=== PATIENT | female | born 1965 | race Caucasian/White ===

== ENCOUNTER 2017-01-30 12:32 | Emergency (ER) | payer OTHER, MEDICAID ==
[2017-01-30 12:40] VITALS: BP 120/81; PULSE 64; RESP 18; TEMP 98.2; O2SAT 97
--- NOTE | 2017-01-30 13:04 | EDPHY ---
H & P Time Seen by Provider: 01/30/17 13:04 HPI/ROS: HPI: ROS: Smoking Status: Never smoked Constitutional: Initial Vital Signs Temperature (C) 36.8 C 01/30/17 12:38 Heart Rate 64 01/30/17 12:38 Respiratory Rate 18 01/30/17 12:38 Blood Pressure 120/81 H 01/30/17 12:38 O2 Sat (%) 97 01/30/17 12:38 O2 Delivery Mode Room Air Allergies/Adverse Reactions: silver sulfadiazine [From Silvadene] Allergy (Severe, Verified 01/30/17 12:37) Skin Reaction midazolam HCl [From Versed] Allergy (Intermediate, Verified 01/30/17 12:37) Other-Enter Comments haloperidol [Haloperidol] Allergy (Unknown, Verified 01/30/17 12:37) "GOES PSYCHO" midazolam [Midazolam] Allergy (Unknown, Verified 01/30/17 12:37) "GOES PSYCHO" Penicillins Allergy (Unknown, Verified 01/30/17 12:37) SEVERE HIVES promethazine [Promethazine] Allergy (Unknown, Verified 01/30/17 12:37) "GOES PSYCHO" Sulfa (Sulfonamide Antibiotics) Allergy (Unknown, Verified 01/30/17 12:37) SKIN REACTION TO SILVADINE Home Medications: Medication Instructions Recorded Diazepam [Valium] 10 mg PO BID 12/15/15 morphINE IR [morphINE IR 30 mg 30 mg PO TID 12/15/15 (RX)] Diazepam [Valium] 10 mg PO BID #7 tab 02/20/16 Diazepam [Valium] 10 mg PO DAILY #9 tab 02/20/16 Morphine Sulfate [Morphine Sulfate 60 mg PO TID #9 tablet.er 02/20/16 ER] morphINE IR [morphINE IR 30 mg 30 mg PO TID #9 tab 02/20/16 (RX)] Cyclobenzaprine 01/30/17 Departure - Departure Referrals: Thang Keller [Primary Care Provider] - As per Instructions
--- NOTE | 2017-01-30 13:44 | EDPHY ---
H & P Stated Complaint: wound on left foot Time Seen by Provider: 01/30/17 13:40 HPI/ROS: CHIEF COMPLAINT: Erythema left 3rd toe HISTORY OF PRESENT ILLNESS: The patient presents to the ED for evaluation of erythema to her left 3rd toe. The patient was seen at urgent care clinic in [place] and started on doxycycline yesterday. She presents to the ED today out of concerns that she needs debridement of her toe. The patient does have a history of paraplegia from a prior accident. The patient has had problems with acute I also result past. The patient denies fever. She denies additional acute complaints. REVIEW OF SYSTEMS: A comprehensive 10 point review of systems is otherwise negative aside from elements mentioned in the history of present illness. Source: Patient Exam Limitations: No limitations - Personal History LMP (Females 10-55): 1-7 Days Ago Current Tetanus/Diphtheria Vaccine: Yes Current Tetanus Diphtheria and Acellular Pertussis (TDAP): Yes - Medical/Surgical History Hx Asthma: No Hx Chronic Respiratory Disease: No Hx Diabetes: No Hx Cardiac Disease: No Hx Renal Disease: No Hx Cirrhosis: No Hx Alcoholism: No Hx HIV/AIDS: No Hx Splenectomy or Spleen Trauma: No Other PMH: BACK SURGERY/PARAPLEGIA/CHRONIC PAIN - Social History Smoking Status: Never smoked - Physical Exam Exam: General Appearance: Alert, no distress Skin: Mild erythema noted on the left 3rd toe, no fluctuance, no discharge, no lymphangitis Musculoskeletal: No pain out of proportion with passive or active range of motion noted in the left foot Constitutional: Initial Vital Signs Temperature (C) 36.8 C 01/30/17 12:38 Heart Rate 64 01/30/17 12:38 Respiratory Rate 18 01/30/17 12:38 Blood Pressure 120/81 H 01/30/17 12:38 O2 Sat (%) 97 01/30/17 12:38 O2 Delivery Mode Room Air Allergies/Adverse Reactions: silver sulfadiazine [From Silvadene] Allergy (Severe, Verified 01/30/17 12:37) Skin Reaction midazolam HCl [From Versed] Allergy (Intermediate, Verified 01/30/17 12:37) Other-Enter Comments haloperidol [Haloperidol] Allergy (Unknown, Verified 01/30/17 12:37) "GOES PSYCHO" midazolam [Midazolam] Allergy (Unknown, Verified 01/30/17 12:37) "GOES PSYCHO" Penicillins Allergy (Unknown, Verified 01/30/17 12:37) SEVERE HIVES promethazine [Promethazine] Allergy (Unknown, Verified 01/30/17 12:37) "GOES PSYCHO" Sulfa (Sulfonamide Antibiotics) Allergy (Unknown, Verified 01/30/17 12:37) SKIN REACTION TO SILVADINE Home Medications: Medication Instructions Recorded Diazepam [Valium] 10 mg PO BID 12/15/15 morphINE IR [morphINE IR 30 mg 30 mg PO TID 12/15/15 (RX)] Diazepam [Valium] 10 mg PO BID #7 tab 02/20/16 Diazepam [Valium] 10 mg PO DAILY #9 tab 02/20/16 Morphine Sulfate [Morphine Sulfate 60 mg PO TID #9 tablet.er 02/20/16 ER] morphINE IR [morphINE IR 30 mg 30 mg PO TID #9 tab 02/20/16 (RX)] Cyclobenzaprine 01/30/17 Medical Decision Making ED Course/Re-evaluation: The patient has a simple cellulitis of her toe. There is no evidence of fluctuance or drainage. The patient was just started on doxycycline yesterday which should offer her adequate coverage for MRSA. The patient does have a follow-up appointment tomorrow at [facility] Care Clinic. The patient was quite upset about the fact that we did not have all of supplies typically stock by the wound care clinic. Departure - Departure Disposition: Home, Routine, Self-Care Clinical Impression: Cellulitis of toe of left foot Condition: Good Instructions: Cellulitis (ED) Additional Instructions: 1. Please take antibiotics as directed. I spoke Dr. Wakefield who feels that doxycycline is an appropriate antibiotic for you to try for treatment of your infection. 2. Please return to the ED for markedly worsening redness or pain. 3. Please follow up with Dr. Ari Wakefield as needed. Please follow up with her own care as needed. Referrals: Thang Keller [Primary Care Provider] - As per Instructions Ari Wakefield MD [Medical Doctor] - As per Instructions
== END 2017-01-30 13:57 | disposition home or self-care (01) ==
DX: L03.032 Cellulitis of left toe (principal)

== ENCOUNTER 2017-02-22 16:44 | Inpatient (IN) | payer OTHER, MEDICAID ==
[2017-02-22] MEDS ORDERED: VANCOMYCIN HCL/NORMAL SALINE 250 ML IV ONE (17:17)
[2017-02-22] MEDS ORDERED: ERTAPENEM 1 GM in NS 100 ML IV ONE (17:17)
--- NOTE | 2017-02-22 17:27 | EDPHY ---
H & P Stated Complaint: left second toe infection Time Seen by Provider: 02/22/17 17:01 HPI/ROS: Complaint: Left 2nd toe cellulitis History of present illness: This is a 51-year-old female who is a paraplegic who presents to the emergency department for left 2nd toe cellulitis. Patient has been struggling for the last month with cellulitis to this toe. She was initially treated with doxycycline without improvement. She was switched to clindamycin which she is currently on but not tolerating well. She is followed by Dr. Ari Wakefield of infectious disease. She presents today feeling it is worse. She denies other associated signs or symptoms including no fevers, no rigors no red streaking up the leg. Review of systems: A 10 point review of systems was obtained and other than described above was negative - Personal History LMP (Females 10-55): Over 28 Days Ago Current Tetanus/Diphtheria Vaccine: Yes Current Tetanus Diphtheria and Acellular Pertussis (TDAP): Yes - Medical/Surgical History Hx Asthma: No Hx Chronic Respiratory Disease: No Hx Diabetes: No Hx Cardiac Disease: No Hx Renal Disease: No Hx Cirrhosis: No Hx Alcoholism: No Hx HIV/AIDS: No Hx Splenectomy or Spleen Trauma: No Other PMH: BACK SURGERY/PARAPLEGIA/CHRONIC PAIN, PE - Social History Smoking Status: Never smoked - Physical Exam Exam: General Appearance: Alert, nontoxic. Eyes: Pupils equal and round no injection. Respiratory: Chest is non tender, lungs are clear to auscultation. Cardiac: regular rate and rhythm Gastrointestinal: Abdomen is soft and non tender, no masses, bowel sounds normal. Musculoskeletal: Neck is supple and non tender. Extremities have full range of motion and are non tender. Skin: Erythema to the left 2nd toe. There is an also over the top of the toe. Mild erythema over the dorsum of the foot. Constitutional: Initial Vital Signs Temperature (C) 37.0 C 02/22/17 17:18 Heart Rate 105 H 02/22/17 17:18 Respiratory Rate 18 02/22/17 17:18 Blood Pressure 121/95 H 02/22/17 17:18 O2 Sat (%) 92 02/22/17 17:18 O2 Delivery Mode Room Air Allergies/Adverse Reactions: silver sulfadiazine [From Silvadene] Allergy (Severe, Verified 02/22/17 17:17) Skin Reaction midazolam HCl [From Versed] Allergy (Intermediate, Verified 02/22/17 17:17) Other-Enter Comments haloperidol [Haloperidol] Allergy (Unknown, Verified 02/22/17 17:17) "GOES PSYCHO" midazolam [Midazolam] Allergy (Unknown, Verified 02/22/17 17:17) "GOES PSYCHO" Penicillins Allergy (Unknown, Verified 02/22/17 17:17) SEVERE HIVES promethazine [Promethazine] Allergy (Unknown, Verified 02/22/17 17:17) "GOES PSYCHO" Sulfa (Sulfonamide Antibiotics) Allergy (Unknown, Verified 02/22/17 17:17) SKIN REACTION TO SILVADINE Home Medications: Medication Instructions Recorded Diazepam [Valium] 10 mg PO BID 12/15/15 morphINE IR [morphINE IR 30 mg 30 mg PO TID 12/15/15 (RX)] Diazepam [Valium] 10 mg PO BID #7 tab 02/20/16 Diazepam [Valium] 10 mg PO DAILY #9 tab 02/20/16 Morphine Sulfate [Morphine Sulfate 60 mg PO TID #9 tablet.er 02/20/16 ER] morphINE IR [morphINE IR 30 mg 30 mg PO TID #9 tab 02/20/16 (RX)] Cyclobenzaprine 03 Medical Decision Making ED Course/Re-evaluation: Patient seen under the supervision of my secondary supervising physician Dr. Gonsalo Neves. Patient presents to the emergency department for evaluation of persistent left 2nd toe cellulitis. She is followed by Dr. Ari Wakefield. He has seen her in the emergency department. He requests that patient be admitted to the hospital. Patient admitted to Dr. Loren Fitzgerald. Dr. Wakefield will follow along. He is recommending Invanz and vancomycin with the vancomycin dosed q.12 hours. Plan has been discussed with the patient who voiced understanding and agreement with it. Departure - Departure Disposition: [facility] Inpatient Acute Clinical Impression: Cellulitis Qualifiers: Site of cellulitis: extremity Site of cellulitis of extremity: toe Laterality: left Qualified Code(s): L03.032 - Cellulitis of left toe Condition: Good
[2017-02-22 17:50] LABS: % IMMATURE GRANULYOCYTES 0.4 % (0.0-1.1); ABSOLUTE IMMATURE GRANULOCYTES 0.03 10^3/uL (0.00-0.10); ADD DIFF? NO; ADD MORPH? NO; ADD SCAN? NO; ATYPICAL LYMPHOCYTE FLAG 0 (0-99); FRAGMENT RBC FLAG 0 (0-99); HEMATOCRIT 41.7 % (38.0-47.0); HEMOGLOBIN 13.7 g/dL (12.6-16.3); LEFT SHIFT FLG 0 (0-99); LIPEMIA HEMOLYSIS FLAG 80 (0-99); MEAN CELL HEMOGLOBIN 29.8 pg (27.9-34.1); MEAN CELL HEMOGLOBIN CONCENTR. 32.9 g/dL (32.4-36.7); MEAN CELL VOLUME 90.8 fL (81.5-99.8); PLATELET CLUMPS FLAG 0 (0-99); PLATELET COUNT 358 10^3/uL (150-400); RED BLOOD CELL COUNT 4.59 10^6/uL (4.18-5.33); RED CELL DISTRIBUTION WIDTH 13.1 % (11.5-15.2)
[2017-02-22 18:01] LABS: ANION GAP 7 mEq/L (8-16); CALCIUM 8.9 mg/dL (8.5-10.4); CARBON DIOXIDE 28 mEq/l (22-31); CHLORIDE 100 mEq/L (97-110); CREATININE 0.5 mg/dL (0.6-1.0); GLOMERULAR FILTRATION RATE > 60; GLUCOSE 84 mg/dL (70-100); POTASSIUM 3.2 mEq/L (3.5-5.2); SODIUM 135 mEq/L (134-144)
[2017-02-22] MEDS ORDERED: morphINE IR 30 MG TAB PO PRN (19:03)
[2017-02-22] MEDS ORDERED: CYCLOBENZAPRINE 10 MG TAB PO PRN (19:03)
[2017-02-22] MEDS ORDERED: PROTOCOL POTASSIUM 1 DOSE MISC PRN (19:05)
--- NOTE | 2017-02-22 19:07 | GCON ---
[f rep st] CONSULTATION INPATIENT INFECTIOUS DISEASE CONSULTATION REFERRING PHYSICIAN: KALYANI Cantu HISTORY OF PRESENT ILLNESS: Patient is a 51-year-old female, who has paraplegia from a spinal cord transection many years ago, who noted an injury to the second toe of her left foot on the dorsal asp ect a number of weeks ago. Patient had sought care around her home in [place] in the emergency room, i n urgent care there, and in [place] where she was first provided with oral doxycycline, which did not take care of the problem. Next, she was given oral clindamycin, which she has a very difficult sonal e tolerating from a gastrointestinal standpoint. She had been unable to keep anything down over the last couple of days, and noticed that her 2nd digit on her left foot became much more red, and that the redness was beginning to come up on her dorsum of her foot. She also felt generally poorly and febrile. She is here for evaluation and treatment. PAST MEDICAL HISTORY: 1. Paraplegia. 2. Chronic pain. PAST SURGICAL HISTORY: Status post back surgery. ANTIBIOTICS: Clindamycin. ALLERGIES: Patient has allergies to sulfadiazine, midazolam, haloperidol, penicillins, sulfa. SOCIAL HISTORY: Patient typically lives in the [facility] area. She denies any significant tobacc o use. Occasional alcohol use. The patient has some history of narcotic addiction, although this w as a pill addiction from prescribed narcotics. FAMILY HISTORY: Reviewed, but noncontributory. REVIEW OF SYSTEMS: Other than that detailed above in History of Present Illness, a 10-system review is negative. PHYSICAL EXAMINATION: VITAL SIGNS: Temperature is 37.0, heart rate is 105, respiratory rate is 18, blood pressure is 121/95. GENERAL: The patient is a well-formed, thin, paraplegic female in no ac tazlina distress. She is not toxic in appearance. She is alert and oriented x3. She is pleasant in de meanor. HEENT: Normocephalic for age. Atraumatic. No scleral icterus. No oral lesion. No drain age from the nares. Eyes: Lids and conjunctivae within normal limits. Pupils equal, round bilater ally. NECK: Supple. No meningismus. LUNGS: Clear to auscultation bilaterally, with good effort. HEART: Regular rate and rhythm. No murmur, rub or gallop noted. SKIN: Warm and dry to the touc h. Patient has an enlarged and inflamed red left 2nd digit, with a 1-cm in diameter ulceration on t he dorsal aspect. The depth of the ulceration does not get to bone. There is no malodor. There is serosanguineous drainage. MUSCULOSKELETAL: No muscle or bony tenderness is noted. No joint line effusion or arthritis seen. NEUROLOGIC: Cranial nerves 2-12 seem to be intact. Peripheral sensati on in the upper extremities is intact, absent in the lower. LABORATORY DATA: The patient had a CBC dated 02/22/2017, which is all within normal limits. White cell count is 7.2, differentials within normal limits. Serum chemistries on 02/22/2017 show a sodiu m of 135, potassium 3.2, chloride of 100, bicarbonate of 28, BUN of 6, creatinine of 0.5. Microbiologic data on 02/22/2017: Blood cultures, 2 sets, are pending. ASSESSMENT: Left 2nd toe infected ulcer/cellulitis. Cellulitis appears to be starting to progress onto the dorsum of the foot. Given the patient's allergy list and failed course of doxycycline and clindamycin, suspect she will need intravenous antibiotic coverage on this. We will admit, and star t her on vancomycin and ertapenem, and re-evaluate every day to see if she can be switched to an ora l Keflex, and followed as an outpatient. PLAN: 1. Start on vancomycin 1 g IV q.12 hours, and ertapenem 1 g IV q.24 hours. 2. Follow appearance of cellulitis over the toe and dorsum of foot. /[id number]/MODL
[2017-02-22] MEDS ORDERED: VANCOMYCIN HCL/NORMAL SALINE 250 ML IV SCH (20:00)
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
[2017-02-22 20:38] LABS: POTASSIUM 3.6 mEq/L (3.5-5.2)
[2017-02-22] MEDS ORDERED: POTASSIUM CL 10 MEQ TAB PO ONE (21:46)
[2017-02-22] MEDS: DIAZEPAM 10 MG TAB PO PRN (21:58)
[2017-02-22] MEDS: fentaNYL 100 MCG PATCH TD SCH (21:58)
[2017-02-22] MEDS: morphINE SR 30 MG TAB PO SCH (21:59)
[2017-02-23 04:53] LABS: % IMMATURE GRANULYOCYTES 0.4 % (0.0-1.1); ABSOLUTE IMMATURE GRANULOCYTES 0.02 10^3/uL (0.00-0.10); ADD DIFF? NO; ADD MORPH? NO; ADD SCAN? NO; ATYPICAL LYMPHOCYTE FLAG 10 (0-99); FRAGMENT RBC FLAG 0 (0-99); HEMATOCRIT 37.8 % (38.0-47.0); HEMOGLOBIN 12.2 g/dL (12.6-16.3); LEFT SHIFT FLG 0 (0-99); LIPEMIA HEMOLYSIS FLAG 80 (0-99); MEAN CELL HEMOGLOBIN CONCENTR. 32.3 g/dL (32.4-36.7); MEAN CELL VOLUME 92.9 fL (81.5-99.8); MEAN PLATELET VOLUME 9.2 fL (8.7-11.7); PLATELET CLUMPS FLAG 0 (0-99); PLATELET COUNT 318 10^3/uL (150-400); RED BLOOD CELL COUNT 4.07 10^6/uL (4.18-5.33); RED CELL DISTRIBUTION WIDTH 13.2 % (11.5-15.2)
[2017-02-23] MEDS ORDERED: ACETAMINOPHEN 325 MG TAB PO PRN (05:08)
[2017-02-23 05:09] LABS: ALANINE AMINOTRANSFERASE 28 IU/L (9-52); ALBUMIN 2.9 g/dL (3.5-5.0); ALKALINE PHOSPHATASE 95 IU/L (38-126); ANION GAP 7 mEq/L (8-16); ASPARTATE AMINOTRANSFERASE 16 IU/L (14-46); BILIRUBIN,TOTAL 0.5 mg/dL (0.1-1.4); BILIRUBIN-CONJUGATED 0.4 mg/dL (0.0-0.5); BILIRUBIN-UNCONJUGATED 0.1 mg/dL (0.0-1.1); CALCIUM 8.5 mg/dL (8.5-10.4); CARBON DIOXIDE 27 mEq/l (22-31); CHLORIDE 105 mEq/L (97-110); CREATININE 0.5 mg/dL (0.6-1.0); GLOMERULAR FILTRATION RATE > 60; GLUCOSE 107 mg/dL (70-100); MAGNESIUM 1.9 mg/dL (1.6-2.3); POTASSIUM 4.1 mEq/L (3.5-5.2); SODIUM 139 mEq/L (134-144); TOTAL PROTEIN 5.3 g/dL (6.3-8.2)
[2017-02-23] MEDS: ACETAMINOPHEN 325 MG TAB PO PRN (05:52)
[2017-02-23] MEDS ORDERED: VANCOMYCIN HCL/NORMAL SALINE 250 ML IV SCH (08:00)
[2017-02-23] MEDS: morphINE SR 30 MG TAB PO SCH ×2 (08:09→21:22)
[2017-02-23] MEDS: ENOXAPARIN 40 MG/0.4 ML SYR SC SCH (08:09)
[2017-02-23] MEDS: ERTAPENEM 1 GM in NS 100 ML IV SCH (09:24)
--- NOTE | 2017-02-23 10:19 | HOSPPROG ---
Hospitalist Progress Note Assessment/Plan: New patient to me today DIAGNOSES: -Toe Wound with Infection, suspect Staph but polymicrobial possible -Sepsis -Diarrhea after recent po Doxy and Clinda; remote hx of C Diff 2010 -Chronic paraplegia -Prior history of difficult pressure ulcers in the ankle and sacral areas are now closed after skin grafting PLANS: - follow cultures closely here -Continue current Vanco on e-rtapenem -Elevation of foot -Wound care nurse consult -Check stool for C diff and manage appropriately SUBJECTIVE: No pain at her foot No chills or sweats She is having significant abdominal cramping and had a diarrheal stool this morning. She did have C difficile colitis in 2010 and says that her symptoms now are quite reminiscent of the symptoms she had then. OBJECTIVE Vitals reviewed: Stable without fever Exam: alert oriented skin warm dry color ok resps not labored lungs clear BSs heart regular abd soft nondistended nontender, bowel sounds present limbs her toe she says looks better than last night but on my examination it is still erythematous and edematous. The open wound on the dorsum of the toe over the IP joint has if any minimal drainage at this time, there is minimal edema over the distal dorsal aspect of the foot ; otherwise limbs are warm, no edema iv site ok Laboratory data: slight anemia has developed otherwise stable since yesterday Cultures of wound blood all pending at this time Objective: Vital Signs Temp Pulse Resp BP Pulse Ox 36.4 C 93 16 112/82 H 97 02/23/17 07:58 02/23/17 07:58 02/23/17 07:58 02/23/17 07:58 02/23/17 07:58 Microbiology 02/22/17 22:10 Gram Stain - Final Toe - Skin Laboratory Results 02/23/17 04:28 02/23/17 04:28 02/22/17 02/23/17 02/24/17 06:59 06:59 06:59 Intake Total 680 Balance 680 ICD10 Worksheet Patient Problems: Problems Problem Status Onset Cellulitis Acute Chronic pain syndrome Acute Paraplegia Acute Urinary tract infection Acute Vomiting Acute
--- NOTE | 2017-02-23 11:36 | PCMIDPN ---
Assessment/Plan: Assessment: Left 4th toe chronic ulceration with surrounding cellulitis. Coverage with vancomycin and ertapenem have decreased the erythema over the toe and the distal aspect of the foot over the MTP. Suspect that the patient may be able to switch to oral antibiotics for discharge in 24 hours. Meantime we will continue the vancomycin ertapenem empirically. Plan: 1. Continue intravenous vancomycin ertapenem. Adjust vancomycin dose to 750 mg IV q.12 hours. 2. Monitor appearance of the 4th digit cellulitis. 3. Plan for discharge on oral antibiotic-likely Keflex due to reported penicillin allergy-tomorrow in order for the patient to make a mid afternoon wound appointment at 3. 02/23/17 16:39 Subjective: Patient is resting comfortably in her hospital room. She denies any new complaint. She states that her left 4th toe appears better to her. She has a long-term spinal cord injury and is paraplegic. Objective: Vancomycin # 1 Ertapenem # 2 Vital Signs Temp Pulse Resp BP Pulse Ox 36.4 C 93 16 112/82 H 97 02/23/17 07:58 02/23/17 07:58 02/23/17 07:58 02/23/17 07:58 02/23/17 07:58 Microbiology 02/22/17 22:10 Gram Stain - Final Toe - Skin Laboratory Results 02/23/17 04:28 02/23/17 04:28 02/22/17 02/23/17 02/24/17 05:59 05:59 05:59 Intake Total 680 Balance 680 - Physical Exam General Appearance: WD/WN, alert, no apparent distress, thin, non-toxic Respiratory: lungs clear, normal breath sounds, No respiratory distress Cardiac/Chest: regular rate, rhythm, No tachycardia Extremities: non-tender, No normal inspection (Left 4th toe with significant edema and moderate erythema improved over examination yesterday. Erythema on the distal part of the forefoot. Improved from yesterday.) Skin: normal color, warm/dry, No rash Neuro/Psych: alert, normal mood/affect, oriented x 3 ICD10 Worksheet Patient Problems: Problems Problem Status Onset Cellulitis Acute Chronic pain syndrome Acute Paraplegia Acute Urinary tract infection Acute Vomiting Acute
--- NOTE | 2017-02-23 11:44 | WOCRNPDOC ---
DAYANNA Advanced Assessment Note - Skin Integrity Problem, Advanced Assess Left Second Toe Dressing Type: Allevyn Life Dressing Description: Clean/Dry, Intact Exudate Amount: Scant Exudate Color: Reddish/Yellow Exudate Characteristic(s): Serosanguinous Integumentary Issue Intervention: Dressing Removed, Mechanical Debridement ( using gauze/NS) Janeth Wound Tissue: Erythema, Swollen, Erythema Marked by Wound RN Janeth Wound Swelling: Moderate Wound Bed Color: Red, Yellow Wound Bed Constitution: Smooth Tissue (70%), Adhered Slough (30%) Wound Edges: Not Attached Site Odor: None Site Measurement - Head-to-Toe Length X Width X Depth (cm): [id number] Skin Integrity Problem Comment: Slough-filled wound noted on dorsal aspect of L second toe. Used dry gauze to mechanically debride wound, and removed significant amount of slough. There remain two areas in the wound bed where slough is well-adhered. Remaining tissue is red, non-granulating. There is erythema extending out from wound bed up to the proximal aspect of this digit, which I marked during assessment. According to report from ID, this is improved from yesterday (02/22) when it extended up onto the dorsum of the L foot. Order for anti-microbial dressings (Verónica Ag and Hydrofera Blue Ready) to be placed. Patient will f[facility]u w[facility] in [facility] setting. Right Heel Dressing Type: Open to Air Exudate Amount: None Exudate Characteristic(s): None Integumentary Issue Intervention: Dressing Applied Janeth Wound Tissue: Blanching, Intact Janeth Wound Swelling: None Wound Bed Color: Purple, Red Site Measurement - Head-to-Toe Length X Width X Depth (cm): Proximal: [id number]. Distal: 0.4cmx0.8tht1ga Pressure Injury Present on Admit: Yes Skin Integrity Problem Comment: Two, discrete, resolving pressure injuries noted on patient's R heel, which she reports occurred in the ED up in [facility] because she was placed of her side for too long. Presently, both sites have intact skin and jennifer when palpated. Janeth-wound tissue is intact w/ no associated erythema or swelling. Placed an Allevyn Life dressing for protection only and ordered Accu-max pump to be applied to her bed as a precaution.
[2017-02-23 17:59] LABS: POTASSIUM 4.1 mEq/L (3.5-5.2)
[2017-02-23] MEDS: VANCOMYCIN 750 MG in D5W 150 ML IV SCH (21:21)
[2017-02-23] MEDS: DIAZEPAM 10 MG TAB PO PRN (21:22)
[2017-02-24 05:32] LABS: POTASSIUM 4.2 mEq/L (3.5-5.2)
[2017-02-24 07:59] VITALS: BP 98/64; PULSE 86; RESP 18; TEMP 98.1; O2SAT 100
[2017-02-24] MEDS: ERTAPENEM 1 GM in NS 100 ML IV SCH (08:45)
[2017-02-24] MEDS: morphINE SR 30 MG TAB PO SCH (08:45)
[2017-02-24] MEDS: ACETAMINOPHEN 325 MG TAB PO PRN (08:46)
[2017-02-24] MEDS: ENOXAPARIN 40 MG/0.4 ML SYR SC SCH (08:46)
--- NOTE | 2017-02-24 09:34 | PCMIDPN ---
Assessment/Plan: Assessment: Left 4th toe chronic ulceration with surrounding cellulitis. Erythema moderately improved. Will record changer tester to PO keflex 500 mg QID for another 10 days. Follow up in wound clinic to day and [facility] Plan: 1. Discontinue intravenous vancomycin and ertapenem. 2. Plan for discharge on oral antibiotic-likely Keflex due to reported penicillin allergy-tomorrow in order for the patient to make a mid afternoon wound appointment at 3. Subjective: Patient feels better. Complains of headache as fentanyl patch has come off again. No fevers. Thinks that her toe looks better. Objective: Vancomycin#2 ertapenem #3 Vital Signs Temp Pulse Resp BP Pulse Ox 36.7 C 86 18 98/64 L 100 02/24/17 07:58 02/24/17 07:58 02/24/17 07:58 02/24/17 07:58 02/24/17 07:58 Microbiology 02/22/17 22:10 Gram Stain - Final Toe - Skin Laboratory Results 02/23/17 04:28 02/24/17 04:54 02/23/17 02/24/17 02/25/17 05:59 05:59 05:59 Intake Total 680 540 Output Total 200 Balance 680 340 - Physical Exam General Appearance: WD/WN, alert, no apparent distress, non-toxic Respiratory: lungs clear, normal breath sounds, No respiratory distress Cardiac/Chest: regular rate, rhythm, No tachycardia Extremities: non-tender, No normal inspection Skin: normal color, warm/dry, No rash Neuro/Psych: alert, normal mood/affect, oriented x 3 ICD10 Worksheet Patient Problems: Problems Problem Status Onset Urinary tract infection Acute Paraplegia Acute Chronic pain syndrome Acute Vomiting Acute Cellulitis Acute
--- NOTE | 2017-02-24 10:02 | PDDCSUM ---
Discharge Summary Discharge Summary: DISCHARGE: - ACUTE WOUND INFECTION AT AN ABRASION ON DORSAL ASPECT OF TOE -PARAPLEGIA CHRONICALLY, STABLE -CHRONIC PAIN SYNDROME WITH CHRONIC CONTINUOUS PRESCRIBED NARCOTIC USE CONSULTANTS: Dr. Ari Wakefield infectious disease HOSPITAL COURSE SUMMARY: This patient with severe disability related to paraplegia suffered an abrasion to left 4th toe apparently during an ER visit elsewhere. This wound has become infected and she has failed 2 courses of outpatient antibiotics with clindamycin and doxycycline. She had worsening swelling and drainage from the wound so came to this hospital. She was admitted in treated with IV antibiotics initially and has responded quite well to this. At this point it is felt that she can go with a trial of Keflex and see if she responds to that. Cultures done previously elsewhere are reportedly unrevealing in cultures here are not growing any organisms which may be due to her previous antibiotics. There been no complications, no sepsis, no signs of systemic infection or illness. Her chronic pain syndrome, and other issues related to her paraplegia oral stable. PENDING TEST RESULTS: None MEDICATION CHANGES: addition of Keflex 500 mg four times daily 10 days FOLLOW-UP PLAN: She will be seen at the outpatient wound Care Center later today with Dr. Montgomery will review her wound and consider any potential debridement. Beyond that ongoing care at the wound Care Center as well as with Dr. Ari Wakefield Greater than 35 minutes bedside and care coordination time today
[2017-02-24] MEDS: VANCOMYCIN 750 MG in D5W 150 ML IV SCH (11:09)
[2017-02-24] MEDS: fentaNYL 100 MCG PATCH TD SCH (11:23)
== END 2017-02-24 14:15 | disposition home health service (06) | DRG 603 ==
LOC: F1N 18:30
PROVIDERS: ADMIT Internal Medicine; ATTEND Internal Medicine
DX: L03.032 Cellulitis of left toe (principal); G82.22 Paraplegia, incomplete; F11.20 Opioid dependence, uncomplicated; G89.4 Chronic pain syndrome; N31.9 Neuromuscular dysfunction of bladder, unspecified; Z86.14 Personal history of Methicillin resistant Staphylococcus aureus infection; E87.6 Hypokalemia; Z79.01 Long term (current) use of anticoagulants; Z86.711 Personal history of pulmonary embolism
CPT/HCPCS: 96365; J1335; J1650; J3370

== ENCOUNTER 2017-06-02 16:55 | Inpatient (IN) | payer OTHER, MEDICAID ==
[2017-06-02] MEDS ORDERED: DIAZEPAM 10 MG TAB PO PRN (21:59)
[2017-06-02] MEDS ORDERED: morphINE IR 30 MG TAB PO PRN (21:59)
[2017-06-02] MEDS ORDERED: Herbals/Supplements -Info Only PO SCH (22:00)
[2017-06-02] MEDS: DOXYCYCLINE HYCLATE 100 MG CAP/TAB PO SCH (22:29)
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
[2017-06-03 05:28] LABS: % IMMATURE GRANULYOCYTES 0.9 % (0.0-1.1); ABSOLUTE IMMATURE GRANULOCYTES 0.05 10^3/uL (0.00-0.10); ADD DIFF? NO; ADD MORPH? NO; ADD SCAN? NO; ATYPICAL LYMPHOCYTE FLAG 0 (0-99); FRAGMENT RBC FLAG 0 (0-99); HEMATOCRIT 31.6 % (38.0-47.0); HEMOGLOBIN 10.1 g/dL (12.6-16.3); LEFT SHIFT FLG 10 (0-99); LIPEMIA HEMOLYSIS FLAG 80 (0-99); MEAN CELL HEMOGLOBIN 30.6 pg (27.9-34.1); MEAN CELL VOLUME 95.8 fL (81.5-99.8); MEAN PLATELET VOLUME 9.2 fL (8.7-11.7); PLATELET CLUMPS FLAG 10 (0-99); PLATELET COUNT 343 10^3/uL (150-400); RED CELL DISTRIBUTION WIDTH 15.1 % (11.5-15.2)
[2017-06-03 05:42] LABS: ALANINE AMINOTRANSFERASE 22 IU/L (9-52); ALBUMIN 2.6 g/dL (3.5-5.0); ALKALINE PHOSPHATASE 58 IU/L (38-126); ANION GAP 7 mEq/L (8-16); ASPARTATE AMINOTRANSFERASE 18 IU/L (14-46); BILIRUBIN,TOTAL 0.8 mg/dL (0.1-1.4); CALCIUM 8.4 mg/dL (8.5-10.4); CARBON DIOXIDE 26 mEq/l (22-31); CHLORIDE 106 mEq/L (97-110); CREATININE 0.7 mg/dL (0.6-1.0); GLOMERULAR FILTRATION RATE > 60; GLUCOSE 97 mg/dL (70-100); POTASSIUM 4.9 mEq/L (3.5-5.2); SODIUM 139 mEq/L (134-144); TOTAL PROTEIN 4.9 g/dL (6.3-8.2)
[2017-06-03] MEDS: DOXYCYCLINE HYCLATE 100 MG CAP/TAB PO SCH ×2 (08:41→20:35)
[2017-06-03] MEDS: morphINE SR 30 MG TAB PO SCH ×2 (08:41→22:54)
[2017-06-03] MEDS: ENOXAPARIN 40 MG/0.4 ML SYR SC SCH (08:59)
[2017-06-03] MEDS ORDERED: DOXYCYCLINE HYCLATE 100 MG CAP/TAB PO SCH (09:00)
[2017-06-03] MEDS ORDERED: LIDOCAINE 1% 300 MG/30 ML SDV ONE (11:24)
[2017-06-03] MEDS ORDERED: BUPIVACAINE 0.25% 30 ML SDV ONE ×2 (11:24)
[2017-06-03] MEDS ORDERED: HYDROmorphONE/DILAUDID 1 MG/ML SYR IVP ONE (12:30)
[2017-06-03] MEDS: CYCLOBENZAPRINE 10 MG TAB PO PRN ×2 (13:22→20:35)
--- NOTE | 2017-06-03 15:22 | HOSPPROG ---
Hospitalist Progress Note Assessment/Plan: 52-year-old female with known T8 fracture and subsequent paraplegia was transferred from [facility]. Patient is new to me today. Patient was diagnosed with a new left femur fracture secondary to fall from her wheelchair at some at, noted to have a UTI and was placed on Levaquin, and was experiencing significant abdominal pain. CT scan here showed evidence of fecal impaction. Patient has been given stool softeners and suppositories and has had significant stool output. Patient is new to me today - Left femur fracture, closed: Will review the x-rays from [facility] and consult Orthopedics although they have notes from [place] indicated orthopedics felt that as she was nonambulatory no further care was needed. Also noted with significant hematoma in the left thigh. Ultrasound here has revealed fluid and an ultrasound-guided aspiration will be obtained. Patient is afebrile and shows no signs of infection. - colonic ileus with fecal impaction: She has been given stool softeners and suppositories and had a good stool output. Lactulose will be prescribed to continue the output. Also noted on the CT scan is a large bladder. Patient is known to have a neurogenic bladder and this may be some of the source of her abdominal pain. Patient at home does in-and out catheterization. She does not have a chronic Garza. - Neurogenic bladder: Per notes above in and out catheterization will be ordered. She is on Levaquin from [facility] for UTI although she is probably chronically colonized. As I do not have any culture results a short 3- 5 day course will be given and then this will be stopped. - T8 traumatic fracture with paraplegia. This is currently stable she has adequate support and devices at home in [place] where she lives -- pain management: Will continue her usual pain medication and try and limit her use of narcotics. Historically she has had narcotic-seeking behavior in the hospital and will attempt to mitigated. Overall the patient appears well and well cared for and seems to be doing well and we should continue to support that. - Known prior skin infection with MR WATKINS. Patient will be placed in isolation. Plan: Ultrasound guided aspiration of the left thigh to rule out infection. Orthopedic consultation for the left femur fracture ; lactulose to prevent fecal impaction ; and in intermittent bladder catheterization for her neurogenic bladder. I will continue her Levaquin for the UTI and stop the doxycycline. CT scans of the abdomen reviewed by myself on the PAC system and with Radiology. Records from [facility] and x-rays will be reviewed when available. Subjective: Reports her abdominal pain is much improved after having a significant bowel movement. Notes that the thigh is less swollen than previously but and the pain is less. Denies fever cough or shortness of breath Objective: Vital Signs Temp Pulse Resp BP Pulse Ox 37.2 C 102 H 20 118/80 99 06/03/17 10:09 06/03/17 10:09 06/03/17 10:09 06/03/17 10:09 06/03/17 10:09 Microbiology 06/03/17 12:50 Gram Stain - Final Leg - Aspirate 06/03/17 12:50 Gram Stain - Final Leg - Aspirate 06/03/17 10:25 Gastrointestinal Tract Panel (PCR) - Final Stool No Organism Detected Laboratory Results 06/03/17 05:15 06/03/17 05:15 06/02/17 06/03/17 06/04/17 05:59 05:59 05:59 Intake Total 0 Balance 0 - Time Spent With Patient Time Spent with Patient: greater than 35 minutes Time Spent with Patient: Greater than 35 minutes spent on this patients care, greater than 50% of time spent counseling, educating, and coordinating care regarding the above mentioned plan. - Pending Discharge Pending Discharge Within 24 Hours: No Pending Discharge Within 48 Hours: Yes Pending Discharge Date: 06/05/17 Pending Discharge Time: 11:00 - Physical Exam Constitutional: no apparent distress, chronically ill appearing Eyes: PERRL Ears, Nose, Mouth, Throat: moist mucous membranes Cardiovascular: regular rate and rhythym, no murmur, rub, or gallop Respiratory: no respiratory distress, no rales or rhonchi Gastrointestinal: normoactive bowel sounds, distension (ment.) Genitourinary: other ( Bladder fullness noted with probable distention.) Skin: warm Musculoskeletal: generalized weakness, other ( Muscular wasting of the lower extremities consistent with T8 paraplegia. Muscle wasting of the upper extremities due to lack of activity. No skin lesions are noted.) Neurologic: AAOx3, CN II-XII Intact, other ( Loss of motor function and sensory function below the T8 level.) Psychiatric: interacting appropriately ICD10 Worksheet Patient Problems: Problems Problem Status Onset Cellulitis Acute Chronic pain syndrome Acute Paraplegia Acute Urinary tract infection Acute Vomiting Acute
[2017-06-03] MEDS: FAMOTIDINE 20 MG TAB PO SCH ×2 (16:26→20:35)
[2017-06-03] MEDS ORDERED: LACTULOSE 20 GM/30 ML UDCUP PO PRN (18:14)
[2017-06-03] MEDS: DIAZEPAM 5 MG TAB PO PRN (21:05)
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
[2017-06-03] MEDS ORDERED: fentaNYL 100 MCG PATCH TD SCH ×2 (21:59→22:15)
[2017-06-03] MEDS ORDERED: fentaNYL 100 MCG/2 ML INJ IVP ONE (21:59)
[2017-06-03] MEDS ORDERED: SIMETHICONE 80 MG TAB CHEW PO PRN (23:20)
[2017-06-04] MEDS ORDERED: fentaNYL 100 MCG PATCH TD SCH (09:00)
[2017-06-04] MEDS: morphINE SR 30 MG TAB PO SCH (09:11)
[2017-06-04] MEDS: DOXYCYCLINE HYCLATE 100 MG CAP/TAB PO SCH (09:11)
[2017-06-04] MEDS: FAMOTIDINE 20 MG TAB PO SCH (09:11)
[2017-06-04] MEDS: SIMETHICONE 80 MG TAB CHEW PO PRN ×2 (09:58→14:16)
[2017-06-04] MEDS: ENOXAPARIN 40 MG/0.4 ML SYR SC SCH (11:15)
[2017-06-04 11:32] VITALS: RESP 15
[2017-06-04 15:15] VITALS: BP 113/64; PULSE 82; TEMP 98.5; O2SAT 98
[2017-06-04] MEDS: DIAZEPAM 5 MG TAB PO PRN (15:53)
--- NOTE | 2017-06-04 19:12 | GDS ---
[f rep st] DISCHARGE SUMMARY DISCHARGE DIAGNOSES: 1. Comminuted fracture of the left proximal femur. 2. Multiple hypodense fluid collections status post cyst aspiration that seems to be most consisten t with hematoma, without signs of infection. 3. Persistent diarrhea possibly due to fecal impaction, improving. 4. Recently diagnosed urinary tract infection. 5. Left 2nd digit cellulitis, improving. 6. History of pulmonary embolism. 7. History of methicillin resistant Staphylococcus aureus. 8. History of T8 paraplegia. CONSULTANTS: Dr. Christiano Batista, Orthopedics. HOSPITAL COURSE AND STAY BY PROBLEM: 1. Left femur fracture with cyst seen on imaging done at [facility]. The patient was transferre d to [facility] due to concerns for abscesses. These pockets were aspirated on 05/11. They have not revealed any organisms. The patient clinically does not appear to have absce ss or cellulitis in her leg. 2. Diarrhea: The patient has been dealing with diarrhea. A stool pathogen panel was done and was negative. Currently, her diarrhea is improving. Physical exam on the day of discharge, blood pressure 92/70, pulse 99, respiratory rate 16, O2 satur ation 92% on room air, temperature afebrile. In general, in no acute distress. Heart: S1 and S2. The lungs are clear. The abdomen is mildly distended. There is no guarding or rebound tenderness. Normoactive bowel sounds. PROCEDURES DURING THIS HOSPITAL STAY: Ultrasound-guided aspiration complex collection of fluid left proximal thigh, without signs of infection. DISCHARGE MEDICATIONS: Please refer to discharge medication reconciliation in [facility]. DISCHARGE INSTRUCTIONS: The patient will be discharged home, where she should follow up with Orthop edics as instructed. She should also continue care with her primary care provider and consider GI c onsultation if her diarrhea persists. The patient plans to see [facility] to review her narcotic pain medications. /[id number]/MODL
== END 2017-06-04 17:02 | disposition home or self-care (01) | DRG 534 ==
LOC: F1N 20:06 → OBSVTOIN 06-03 16:50
PROVIDERS: ADMIT Family Medicine; ATTEND Family Medicine
PROC: 0J9P3ZX Drainage of Left Lower Leg Subcutaneous Tissue and Fascia, Percutaneous Approach, Diagnostic (ICD-10-PCS; principal; 2017-06-03)
DX: S72.392A Other fracture of shaft of left femur, initial encounter for closed fracture (principal); T79.8XXA Other early complications of trauma, initial encounter; G82.22 Paraplegia, incomplete; N39.0 Urinary tract infection, site not specified; K56.41 Fecal impaction; R19.7 Diarrhea, unspecified; G89.21 Chronic pain due to trauma; F11.20 Opioid dependence, uncomplicated; N31.9 Neuromuscular dysfunction of bladder, unspecified; L03.032 Cellulitis of left toe; Z99.3 Dependence on wheelchair; Z86.14 Personal history of Methicillin resistant Staphylococcus aureus infection; Z86.711 Personal history of pulmonary embolism; V00.811A Fall from moving wheelchair (powered), initial encounter; W64.XXXA Exposure to other animate mechanical forces, initial encounter; Y92.9 Unspecified place or not applicable
CPT/HCPCS: G0378; J1170; J1650; J3010

== ENCOUNTER 2017-06-10 18:47 | Observation (INO) | payer OTHER, MEDICAID ==
[2017-06-10] MEDS ORDERED: ACETAMINOPHEN 325 MG TAB PO PRN (22:08)
[2017-06-10] MEDS ORDERED: ONDANSETRON DISINTEGRATING 4 MG TAB PO PRN (22:08)
[2017-06-10] MEDS ORDERED: ONDANSETRON 4 MG/2 ML VIAL IVP PRN (22:08)
[2017-06-10] MEDS ORDERED: SENNOSIDES 1 TAB PO PRN (22:14)
[2017-06-10] MEDS: morphINE IR 30 MG TAB PO PRN (22:35)
[2017-06-10] MEDS ORDERED: CYCLOBENZAPRINE 10 MG TAB PO PRN (23:24)
[2017-06-10] MEDS ORDERED: fentaNYL 100 MCG PATCH TD SCH (23:30)
--- NOTE | 2017-06-11 02:12 | PDGENHP ---
History and Physical - Chief Complaint Pain - History of Present Illness Ms. Kirsten Alvarez is a 52 yo F w/ hx of T8 paraplegia, chronic pain, and recent L femur fx transferred to [facility] from [facility] ED with complaints of "pain all over". Patient states that she has been having severe pain for the last few days. She describes the pain as "all over" and cannot pinpoint one location being more bothersome than any other. She also complains of diffuse spasms. She notes these symptoms began after she ran out of her opiate pain medication. She used her last fentanyl patch on the Friday prior to admission and used her last MS Contin on the day prior to admission. Per [facility] ED, sister reports she is having difficulty caring for her at home due to her pain complaints. Patient says she has had difficulty receiving consistent opiate prescriptions over the last few months since her pain clinic under went a change in personnel. She denies fever, chest pain, cough, SOB, and abdominal pain. History Information - Allergies/Home Medication List Allergies/Adverse Reactions: lorazepam Allergy (Severe, Verified 02/22/17 18:39) Other-Enter Comments silver sulfadiazine [From Silvadene] Allergy (Severe, Verified 02/22/17 17:17) Skin Reaction midazolam HCl [From Versed] Allergy (Intermediate, Verified 02/22/17 17:17) Other-Enter Comments haloperidol [Haloperidol] Allergy (Unknown, Verified 02/22/17 17:17) "GOES PSYCHO" midazolam [Midazolam] Allergy (Unknown, Verified 02/22/17 17:17) "GOES PSYCHO" Penicillins Allergy (Unknown, Verified 02/22/17 17:17) SEVERE HIVES promethazine [Promethazine] Allergy (Unknown, Verified 02/22/17 17:17) "GOES PSYCHO" Sulfa (Sulfonamide Antibiotics) Allergy (Unknown, Verified 02/22/17 17:17) SKIN REACTION TO SILVADINE Home Medications: Cyclobenzaprine [Flexeril 10 MG (*)] 10 mg PO TID PRN 02/22/17 [Last Taken 02/21] fentaNYL [Duragesic 100 MCG Patch (*)] 100 mcg TD Q2D 02/22/17 [Last Taken 05/24] morphINE IR [morphINE IR 30 mg (*)] 30 mg PO QID PRN 02/22/17 [Last Taken 11:00] morphINE SR [MS Contin/Oramorph SR 30 mg (*)] 30 mg PO BID 02/22/17 [Last Taken 06/02/17 09:00] Diazepam [Valium 10 MG (*)] 10 mg PO Q6 PRN 06/02/17 [Last Taken 06/01/17] Doxycycline Hyclate [Vibramycin 100 MG (*)] 100 mg PO BID 06/02/17 [Last Taken 06/02/17 09:00] Herbals/Supplements -Info Only 1 ea PO AD 06/02/17 [Last Taken Unknown] Promethazine HCl [Phenergan 25mg (*)] 12.5 - 25 mg PO Q6 PRN 06/02/17 [Last Taken 06/02/17] Sennosides 17.2 - 51.6 mg PO HS 06/02/17 [Last Taken 06/01/17 6 tabs] levOFLOXACIN [levAQUIN (*)] 750 mg PO DAILY 06/02/17 [Last Taken 06/01/17] I have personally reviewed and updated: family history, medical history - Past Medical History Additional medical history: Chronic pain, paraplegia - Family History Negative for: connective tissue disorder - Social History Smoking Status: Never smoked Alcohol Use: None Review of Systems ROS: 10pt was reviewed & negative except for what was stated in HPI & below Physical Exam Temp Pulse Resp BP Pulse Ox 36.1 C 75 18 125/84 H 96 06/10/17 22:48 06/10/17 22:48 06/10/17 22:48 06/10/17 22:48 06/10/17 22:48 Constitutional: chronically ill appearing, uncomfortable Eyes: PERRL, EOMI Ears, Nose, Mouth, Throat: moist mucous membranes, no oral mucosal ulcers Cardiovascular: regular rate and rhythym, no murmur, rub, or gallop Respiratory: no respiratory distress, no rales or rhonchi Gastrointestinal: normoactive bowel sounds, soft, non-tender abdomen Skin: warm, normal color Musculoskeletal: no muscle tenderness, other (0/5 strenght b/l LE's with muscle wasting noted, mild swelling L thigh. No redness, warmth, or fluid collection noted. L 2nd toe with evidence of healed infection.) Neurologic: AAOx3, CN II-XII Intact, other (T8 paraplegia) Psychiatric: interacting appropriately, anxious, agitated Lab Data & Imaging Review Data from [facility] personally reviewed and pertinent for Cr 0.61, WBC 4.8, H /H 12.4 Assessment & Plan Assessment: Ms. Kirsten Alvarez is a 52 yo F w/ hx of chronic pain, T8 paraplegia, and recent L femur fx presenting with widespread pain concerning for opiate withdrawal. Plan: 1. Uncontrolled pain with hx of chronic opiate use - Patient presenting with widespread pain without signs or symptoms of clear organic etiology. She ran out of her home narcotics during the days preceding her presentation, and I suspect her pain complaints related to opiate withdrawal with possible malingering secondary to fear of inability to obtain chronic opiates. Laboratory work-up at [facility] unremarkable with WBC of 4.8; VS WNL throughout. - Restart Morphine 30 mg IR q6h and fentanyl patch 100 mcg/hr - Cyclobenzaprine 10 mg TID for spasms - Continue home Senna 2. Recent comminuted L femur fx - Seen by Ortho during recent admission with recommendation for non-surgical management. No evidence of complication on exam or laboratory work-up. Fluid collections aspirated last admission with no evidence of infection. 3. Hx of T8 paraplegia 4. Recent L 2nd toe cellulitis - Appears to be healing well on exam 5. Hx of MRSA Diet - Regular Code - Full Ppx - LMWH Dispo - Admit to OBS; suspect improvement in less than 2 midnights with continuation of home opiate regimen
[2017-06-11 04:21] LABS: % IMMATURE GRANULYOCYTES 0.4 % (0.0-1.1); ABSOLUTE IMMATURE GRANULOCYTES 0.02 10^3/uL (0.00-0.10); ADD DIFF? NO; ADD MORPH? NO; ADD SCAN? NO; ATYPICAL LYMPHOCYTE FLAG 40 (0-99); FRAGMENT RBC FLAG 0 (0-99); HEMATOCRIT 33.9 % (38.0-47.0); HEMOGLOBIN 10.4 g/dL (12.6-16.3); LEFT SHIFT FLG 0 (0-99); LIPEMIA HEMOLYSIS FLAG 80 (0-99); MEAN CELL HEMOGLOBIN 29.3 pg (27.9-34.1); MEAN CELL HEMOGLOBIN CONCENTR. 30.7 g/dL (32.4-36.7); MEAN CELL VOLUME 95.5 fL (81.5-99.8); MEAN PLATELET VOLUME 9.1 fL (8.7-11.7); PLATELET CLUMPS FLAG 10 (0-99); PLATELET COUNT 419 10^3/uL (150-400); RED BLOOD CELL COUNT 3.55 10^6/uL (4.18-5.33); RED CELL DISTRIBUTION WIDTH 14.6 % (11.5-15.2)
[2017-06-11 04:40] LABS: ANION GAP 7 mEq/L (8-16); CALCIUM 8.9 mg/dL (8.5-10.4); CARBON DIOXIDE 27 mEq/l (22-31); CHLORIDE 111 mEq/L (97-110); CREATININE 0.5 mg/dL (0.6-1.0); GLOMERULAR FILTRATION RATE > 60; GLUCOSE 90 mg/dL (70-100); POTASSIUM 4.3 mEq/L (3.5-5.2); SODIUM 145 mEq/L (134-144)
[2017-06-11] MEDS: morphINE IR 30 MG TAB PO PRN ×2 (04:41→10:45)
[2017-06-11] MEDS ORDERED: ENOXAPARIN 40 MG/0.4 ML SYR SC SCH (09:00)
[2017-06-11] MEDS ORDERED: SENNOSIDES 1 TAB PO ONE ×2 (10:00)
[2017-06-11] MEDS ORDERED: CYCLOBENZAPRINE 10 MG TAB PO PRN (10:09)
[2017-06-11] MEDS ORDERED: DIAZEPAM 10 MG TAB PO PRN (10:09)
--- NOTE | 2017-06-11 10:34 | PDDCSUM ---
Discharge Summary Discharge Summary: Dates of service 06/11/17 Discharge dx: # acute on chronic pain with continuous opiate use and dependency # personality disorder # recent left femur fracture Consultations/procedures: none Hospital course by problem: 52 yo F with hx of T8 paraplegia as well as chronic pain with continuous narcotic use and dependency and recent difficulty in obtaining narcotic pain medications presenting with opiate withdrawal and acute on chronic pain # acute on chronic pain with continuous opiate use and dependency: patient with longstanding issues with chronic pain and opiate dependency and has recently had increasing issues around this as she has been unable to obtain pain medications from providers--has been "fired" from multiple pain clinics and reportedly there are no MD's in [facility] willing to care for her any longer. She presents with pain crisis and opiate withdrawal, both of which significantly improved after resuming fentanyl patch and morphine IR. On reviewing her PDMP data, she has very minimal prescription fills in the past year, consistent with her history of having no access. Given her withdrawal and continued tolerance however, this does raise concerns of obtaining opiates illegally which she has denied. Discussed with her and her sister at length that the best plan is for her to get into treatment with one pain doctor and/or get into treatment for substance abuse. 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 Family involved also struggling to manage this. Do not suspect axis 1 disorder or see any signs that she is not at her usual baseline, specifically do not see any indication to place patient on H at this time. Discussed with family that an inpatient substance abuse treatment would likely be her best option, they have looked into these options before and are considering this going forward # left femur fracture: recent injury addressed previously, non operative, will f /u with the orthopedist she has already established care with # incomplete T8 paraplegia: 2/2 climbing accident in 1997 # h/o PE (off of AC), chronic hip dislocation, neurogenic bladder, prior decubitus ulcer, recent toe cellulitis Dc home--she is to follow up with pain management as scheduled tomorrow Meds: given approximately 1 week rx of morphine IR, fentanyl patch, valium > 60 minutes spent in dc, coordinating care with case management and patients family
[2017-06-11 11:16] VITALS: BP 100/61; PULSE 91; RESP 16; TEMP 97.3; O2SAT 98
--- NOTE | 2017-06-11 15:41 | HOSPPROG ---
Hospitalist Progress Note Assessment/Plan: 52 yo F with hx of T8 paraplegia as well as chronic pain with continuous narcotic use and dependency and recent difficulty in obtaining narcotic pain medications presenting with opiate withdrawal and acute on chronic pain # acute on chronic pain with continuous opiate use and dependency: patient with longstanding issues with chronic pain and opiate dependency and has recently had increasing issues around this as she has been unable to obtain pain medications from providers--has been "fired" from multiple pain clinics and reportedly there are no MD's in [facility] willing to care for her any longer. She presents with pain crisis and opiate withdrawal, both of which significantly improved after resuming fentanyl patch and morphine IR. On reviewing her PDMP data, she has very minimal prescription fills in the past year, consistent with her history of having no access. Given her withdrawal and continued tolerance however, this does raise concerns of obtaining opiates illegally which she has denied. Discussed with her and her sister at length that the best plan is for her to get into treatment with one pain doctor and/or get into treatment for substance abuse. 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 Family involved also struggling to manage this. Do not suspect axis 1 disorder or see any signs that she is not at her usual baseline, specifically do not see any indication to place patient on [facility] at this time. Discussed with family that an inpatient substance abuse treatment would likely be her best option, they have looked into these options before and are considering this going forward # left femur fracture: recent injury addressed previously, non operative, will f /u with the orthopedist she has already established care with # incomplete T8 paraplegia: / climbing accident in 1997 # Objective: Vital Signs Temp Pulse Resp BP Pulse Ox 36.3 C 91 16 100/61 98 06/11/17 11:15 06/11/17 11:15 06/11/17 11:15 06/11/17 11:15 06/11/17 11:15 Laboratory Results 06/11/17 03:36 06/11/17 03:36 06/10/17 06/11/17 06/12/17 05:59 05:59 05:59 Intake Total 350 Balance 350 ICD10 Worksheet Patient Problems: Problems Problem Status Onset Cellulitis Acute Chronic pain syndrome Acute Paraplegia Acute Urinary tract infection Acute Vomiting Acute
[2017-06-11] MEDS ORDERED: SENNOSIDES 1 TAB PO SCH (21:00)
[2017-06-11] MEDS ORDERED: morphINE SR 30 MG TAB PO SCH (21:00)
== END 2017-06-11 16:46 | disposition home or self-care (01) ==
LOC: F2W 21:47
PROVIDERS: ADMIT Internal Medicine; ATTEND Internal Medicine
DX: G89.29 Other chronic pain (principal); F11.23 Opioid dependence with withdrawal; G82.22 Paraplegia, incomplete; F60.9 Personality disorder, unspecified; S72.92XA Unspecified fracture of left femur, initial encounter for closed fracture; N31.9 Neuromuscular dysfunction of bladder, unspecified; W19.XXXS Unspecified fall, sequela; Z86.14 Personal history of Methicillin resistant Staphylococcus aureus infection; Z86.711 Personal history of pulmonary embolism; Z87.820 Personal history of traumatic brain injury
CPT/HCPCS: G0378; J1650

== ENCOUNTER 2017-07-30 14:35 | Emergency (ER) | payer OTHER, MEDICAID ==
[2017-07-30 14:44] VITALS: BP 119/87; PULSE 84; RESP 18; TEMP 99.1; O2SAT 98
[2017-07-30] MEDS ORDERED: NS 1,000 ML IV ONE (15:35)
--- NOTE | 2017-07-30 15:39 | EDPHY ---
H & P Stated Complaint: Recent UTI dx;having problems w/pain meds;not feeling well "for a while" Time Seen by Provider: 07/30/17 15:16 HPI/ROS: Chief Complaint: Dehydration, difficulty with pain medicines HPI: 52-year-old woman with a history of paraplegia secondary to a climbing accident in 1997. Patient was recently diagnosed with a urinary tract infection and [facility]. She was started on Levaquin. Patient was brought into the emergency department that point because she of the mental status changes. Patient also has had some difficulty with her chronic pain medicines. She is normally on morphine, fentanyl patch in diazepam. Sugar and out but was restarted him on a week ago. Patient's mother has been staying with her blood last 3 weeks to help care for her. She has been adjusting her pain medications and not providing is been his usual. Patient did not require pain medicine over the weekend prior to her diagnosis of UTI because she was somnolent. Patient is having increasing pain now but has only been getting 1 of from morphine tablets yesterday where she usually gets 4 a day. Patient has been taking her antibiotic. Right now she states she is feels dehydrated. She has also been having some difficulty self cathing. No fevers or chills. No chest pain or shortness of breath. Has had a mild headache. Some nausea but no vomiting. ROS: 10 point Review of Systems is negative except as noted in the HPI. PMH: Chronic pain secondary to paraplegia Social History: No smoking, no alcohol, no recreational drug use Family History: non-contributory Physical Exam: Gen: Awake, Alert, No Distress HEENT: Nose: no rhinorrhea Eyes: PERRLA, EOMI Mouth: Moist mucosa Neck: Supple, no JVD Chest: nontender, lungs clear to auscultation Heart: S1, S2 normal, no murmur Abd: Soft, non-tender, no guarding Back: no CVA tenderness, no midline tenderness, healing decubitus ulcer over her left sacrum, not infected Ext: no edema, non-tender Skin: no rash Neuro: CN II-XII intact, sensation and strength are intact in bilateral upper extremities, she is 2 sensation bilateral extremities secondary to paraplegia with significant muscle wasting which is her baseline. - Personal History LMP (Females 10-55): Post Menopausal Current Tetanus Diphtheria and Acellular Pertussis (TDAP): Yes - Medical/Surgical History Hx Asthma: No Hx Chronic Respiratory Disease: No Hx Diabetes: No Hx Cardiac Disease: No Hx Renal Disease: No Hx Cirrhosis: No Hx Alcoholism: No Hx HIV/AIDS: No Hx Splenectomy or Spleen Trauma: No Other PMH: BACK SURGERY/PARAPLEGIA/CHRONIC PAIN, PE - Social History Smoking Status: Never smoked Constitutional: Initial Vital Signs Temperature (C) 37.3 C 07/30/17 14:39 Heart Rate 84 07/30/17 14:39 Respiratory Rate 18 07/30/17 14:39 Blood Pressure 119/87 H 07/30/17 14:39 O2 Sat (%) 98 07/30/17 14:39 O2 Delivery Mode Room Air Allergies/Adverse Reactions: lorazepam Allergy (Severe, Verified 07/30/17 14:39) Other-Enter Comments silver sulfadiazine [From Silvadene] Allergy (Severe, Verified 07/30/17 14:39) Skin Reaction midazolam HCl [From Versed] Allergy (Intermediate, Verified 07/30/17 14:39) Other-Enter Comments haloperidol [Haloperidol] Allergy (Unknown, Verified 07/30/17 14:39) "GOES PSYCHO" midazolam [Midazolam] Allergy (Unknown, Verified 07/30/17 14:39) "GOES PSYCHO" olanzapine [From Zyprexa] Allergy (Unknown, Verified 07/30/17 14:39) "GOES PSYCHO" Penicillins Allergy (Unknown, Verified 07/30/17 14:39) SEVERE HIVES promethazine [Promethazine] Allergy (Unknown, Verified 07/30/17 14:39) "GOES PSYCHO" Sulfa (Sulfonamide Antibiotics) Allergy (Unknown, Verified 07/30/17 14:39) SKIN REACTION TO SILVADINE Home Medications: Medication Instructions Recorded Cyclobenzaprine [Flexeril 10 MG 10 mg PO TID PRN #21 tab 06/11/17 (*)] fentaNYL [Duragesic 100 MCG Patch 100 mcg TD Q72H #4 patch 06/11/17 (*)] morphINE IR [morphINE IR 30 mg (*)] 30 mg PO Q6HRS PRN #50 tab 06/11/17 levOFLOXACIN [levAQUIN (*)] 500 mg PO 07/30/17 Medical Decision Making ED Course/Re-evaluation: A I have discussed the case with the patient's pain medicine Cady LEWIS. They will arrange to see the patient in their office tomorrow. Patient is awake and alert and clear and has decision-making capacity. She is dehydrated here clinically but her urinalysis chemistry and CBC are normal. She is expressing desire not to be with her mother anymore that she feels that her mother's being overbearing at this time. I do not see any signs of acute metabolic delirium. There are no signs of infection. Her decubitus ulcer is healing well and does not appear infected. She is otherwise in her normal state health. Will discharge with follow-up with pain management doctor as scheduled tomorrow. - Data Points Laboratory Results: Laboratory Results 07/30/17 16:10 07/30/17 16:10 07/30/17 07/30/17 07/30/17 16:10 16:10 16:10 WBC 6.67 10^3/uL 10^3/uL (3.80-9.50) RBC 4.91 10^6/uL 10^6/uL (4.18-5.33) Hgb 14.8 g/dL g/dL (12.6-16.3) Hct 44.8 % % (38.0-47.0) MCV 91.2 fL fL (81.5-99.8) MCH 30.1 pg pg (27.9-34.1) MCHC 33.0 g/dL g/dL (32.4-36.7) RDW 13.8 % % (11.5-15.2) Plt Count 270 10^3/uL 10^3/uL (150-400) MPV 9.9 fL fL (8.7-11.7) Neut % (Auto) 71.2 % % (39.3-74.2) Lymph % (Auto) 18.0 % % (15.0-45.0) [place] % (Auto) 8.1 % % (4.5-13.0) Eos % (Auto) 1.6 % % (0.6-7.6) Baso % (Auto) 0.7 % % (0.3-1.7) Nucleat RBC Rel Count 0.0 % % (0.0-0.2) Absolute Neuts (auto) 4.74 10^3/uL 10^3/uL (1.70-6.50) Absolute Lymphs (auto) 1.20 10^3/uL 10^3/uL (1.00-3.00) Absolute Monos (auto) 0.54 10^3/uL 10^3/uL (0.30-0.80) Absolute Eos (auto) 0.11 10^3/uL 10^3/uL (0.03-0.40) Absolute Basos (auto) 0.05 10^3/uL 10^3/uL (0.02-0.10) Absolute Nucleated RBC 0.00 10^3/uL 10^3/uL (0-0.01) Immature Gran % 0.4 % % (0.0-1.1) Immature Gran # 0.03 10^3/uL 10^3/uL (0.00-0.10) Sodium 139 mEq/L mEq/L (134-144) Potassium 3.6 mEq/L mEq/L (3.5-5.2) Chloride 103 mEq/L mEq/L (97-110) Carbon Dioxide 24 mEq/l mEq/l (22-31) Anion Gap 12 mEq/L mEq/L (8-16) BUN 10 mg/dL mg/dL (7-23) Creatinine 0.5 mg/dL L mg/dL (0.6-1.0) Estimated GFR > 60 Glucose 90 mg/dL mg/dL (70-100) Calcium 9.0 mg/dL mg/dL (8.5-10.4) Total Bilirubin 0.5 mg/dL mg/dL (0.1-1.4) AST 19 IU/L IU/L (14-46) ALT 23 IU/L IU/L (9-52) Alkaline Phosphatase 117 IU/L IU/L (38-126) Total Protein 6.4 g/dL g/dL (6.3-8.2) Albumin 3.7 g/dL g/dL (3.5-5.0) Urine Color YELLOW Urine Appearance CLEAR Urine pH 6.0 (5.0-7.5) Ur Specific [place] 1.012 (1.002-1.030) Urine Protein NEGATIVE (NEGATIVE) Urine Ketones NEGATIVE (NEGATIVE) Urine Blood NEGATIVE (NEGATIVE) Urine Nitrate NEGATIVE (NEGATIVE) Urine Bilirubin NEGATIVE (NEGATIVE) Urine Urobilinogen NEGATIVE EU EU (0.2-1.0) Ur Leukocyte Esterase NEGATIVE (NEGATIVE) Urine Glucose NEGATIVE (NEGATIVE) Medications Given: Discontinued Medications Sodium Chloride (Ns) 1,000 mls @ 0 mls/hr IV ONCE ONE; Wide Open PRN Reason: Protocol Stop: 07/30/17 15:36 Last Admin: 07/30/17 15:52 Dose: 1,000 mls Departure - Departure Disposition: Home, Routine, Self-Care Clinical Impression: Dehydration Condition: Good Instructions: Dehydration (ED) Additional Instructions: Follow up with your pain medicine physician tomorrow as scheduled. Referrals: NONE *PRIMARY CARE P,. [Primary Care Provider] - As per Instructions
[2017-07-30 16:26] LABS: % IMMATURE GRANULYOCYTES 0.4 % (0.0-1.1); ABSOLUTE IMMATURE GRANULOCYTES 0.03 10^3/uL (0.00-0.10); ADD DIFF? NO; ADD MORPH? NO; ADD SCAN? NO; ATYPICAL LYMPHOCYTE FLAG 50 (0-99); FRAGMENT RBC FLAG 0 (0-99); HEMATOCRIT 44.8 % (38.0-47.0); HEMOGLOBIN 14.8 g/dL (12.6-16.3); LEFT SHIFT FLG 0 (0-99); LIPEMIA HEMOLYSIS FLAG 80 (0-99); MEAN CELL HEMOGLOBIN 30.1 pg (27.9-34.1); MEAN CELL VOLUME 91.2 fL (81.5-99.8); MEAN PLATELET VOLUME 9.9 fL (8.7-11.7); PLATELET CLUMPS FLAG 0 (0-99); PLATELET COUNT 270 10^3/uL (150-400); RED BLOOD CELL COUNT 4.91 10^6/uL (4.18-5.33); RED CELL DISTRIBUTION WIDTH 13.8 % (11.5-15.2)
[2017-07-30 16:35] LABS: COLOR YELLOW; LEUKOCYTE ESTERASE,URINE NEGATIVE (NEGATIVE); NITRITE,URINE NEGATIVE (NEGATIVE)
[2017-07-30 16:47] LABS: ALANINE AMINOTRANSFERASE 23 IU/L (9-52); ALBUMIN 3.7 g/dL (3.5-5.0); ALKALINE PHOSPHATASE 117 IU/L (38-126); ANION GAP 12 mEq/L (8-16); ASPARTATE AMINOTRANSFERASE 19 IU/L (14-46); BILIRUBIN,TOTAL 0.5 mg/dL (0.1-1.4); CARBON DIOXIDE 24 mEq/l (22-31); CHLORIDE 103 mEq/L (97-110); CREATININE 0.5 mg/dL (0.6-1.0); GLOMERULAR FILTRATION RATE > 60; GLUCOSE 90 mg/dL (70-100); POTASSIUM 3.6 mEq/L (3.5-5.2); SODIUM 139 mEq/L (134-144); TOTAL PROTEIN 6.4 g/dL (6.3-8.2)
== END 2017-07-30 17:46 | disposition home or self-care (01) ==
PROC: 0T9B70Z Drainage of Bladder with Drainage Device, Via Natural or Artificial Opening (ICD-10-PCS; principal; 2017-07-30)
DX: E86.0 Dehydration (principal); E86.9 Volume depletion, unspecified